=== PATIENT | female | born 1950 | race Caucasian/White ===

== ENCOUNTER 2022-11-09 12:36 | Inpatient (IN) | payer OTHER, MEDICARE ==
[~2022-11-09 12:36] MED LIST: Magnevist 469MG/ML 20 ML VIAL ONE
[2022-11-09 15:10] LABS: #Neutrophils 2.2 thou/uL (1.40-6.50); %Basophils 0.7 % (0.0-1.0); %Eosinophils 0.3 % (0.0-10.0); %Lymphocytes 43.1 % (21.0-51.0); %Monocytes 17.5 % (0.0-10.0); %Neutrophils 37.2 % (42.0-75.0); Hemoglobin 9.3 g/dL (12.0-16.0); Mean Corpuscular HGB CONC 32.1 g/dL (32.0-36.0); Mean Corpuscular Hemoglobin 31.4 pg (27.0-31.0); Mean Platelet Volume 9.7 fL (7.4-10.4); RBC Distribution Width 17.3 % (11.5-14.5); Red Blood Cell (RBC) Count 2.96 mill/uL (4.20-5.40); White Blood Cell (WBC) Count 5.8 10x3/uL (4.8-10.8)
[2022-11-09 15:13] LABS: Platelet Count 80 10x3/uL (130-400)
[2022-11-09 15:32] LABS: ALT (SGPT) 37 U/L (8-55); AST (SGOT) 29 U/L (5-34); Albumin 3.2 g/dL (3.4-4.8); Alkaline Phosphatase 47 U/L (40-110); Anion Gap 7 mmol/L (10-20); BUN (Urea Nitrogen) 19 mg/dL (9.8-20.1); Bilirubin, Total 0.4 mg/dL (0.2-1.2); Calc. Creatinine Clearance 0 mL/min (70-130); Calcium 10.1 mg/dL (7.8-10.44); Carbon Dioxide 27 mmol/L (23-31); Chloride 96 mmol/L (98-107); Estimated GFR 53; Glucose 104 mg/dL (83-110); Potassium 3.4 mmol/L (3.5-5.1); Sodium 127 mmol/L (136-145)
[2022-11-09 16:08] LABS: Protein, Total 14.4 g/dL (5.8-8.1)
[2022-11-09 16:09] LABS: Globulin 11.2 g/dL (2.4-3.5)
[2022-11-09] MEDS ORDERED: Morphine 4 MG/ML VIAL ONE (16:48)
[2022-11-09] MEDS ORDERED: Ondansetron ODT 4 MG TAB PO PRN (17:48)
[2022-11-09] MEDS ORDERED: Morphine 2 MG/ML VIAL SLOW IVP PRN (17:56)
[2022-11-09] MEDS ORDERED: Dexamethasone 40 MG in Sodium Chloride 0.9% 50 ML IVPB SCH ×3 (18:15→18:30)
[2022-11-09] MEDS ORDERED: Potassium Chloride 20 MEQ TAB PO SCH (19:00)
[2022-11-09] MEDS ORDERED: Potassium Chloride 20 MEQ TAB ONE (19:25)
[2022-11-09] MEDS: Sodium Chloride 0.9% 1,000 ML IV SCH (19:44)
[2022-11-09 19:47] LABS: Magnesium 2.4 mg/dL (1.6-2.6); Phosphorus 4.1 mg/dL (2.3-4.7)
[2022-11-09 19:54] VITALS: BMI 19.9
[2022-11-09] MEDS: HYDROcodone/Acetaminophen 7.5/325 mg Tablet PO PRN (19:58)
[2022-11-09] MEDS ORDERED: HYDROcodone/Acetaminophen 7.5/325 mg Tablet ONE (19:58)
[2022-11-09] MEDS ORDERED: Famotidine 20 MG TAB PO SCH (21:00)
[2022-11-09] MEDS: fentaNYL 50 mcg/hour Patch TD SCH (21:45)
[2022-11-09] MEDS ORDERED: Pantoprazole 40 MG VIAL IVP SCH (23:59)
[2022-11-10] MEDS: HYDROcodone/Acetaminophen 7.5/325 mg Tablet PO PRN ×3 (01:39→17:14)
[2022-11-10 07:51] LABS: #Monocytes 0.6 thou/uL (0.11-0.59); #Neutrophils 4.3 thou/uL (1.40-6.50); %Basophils 0.3 % (0.0-1.0); %Eosinophils 0.1 % (0.0-10.0); %Lymphocytes 37.1 % (21.0-51.0); %Monocytes 6.9 % (0.0-10.0); %Neutrophils 54.1 % (42.0-75.0); Hematocrit 25.4 % (36.0-47.0); Hemoglobin 8.1 g/dL (12.0-16.0); Mean Corpuscular HGB CONC 31.9 g/dL (32.0-36.0); Mean Corpuscular Hemoglobin 31.6 pg (27.0-31.0); Mean Corpuscular Volume 99.2 fl (78.0-98.0); Mean Platelet Volume 9.4 fL (7.4-10.4); RBC Distribution Width 17.3 % (11.5-14.5); Red Blood Cell (RBC) Count 2.56 mill/uL (4.20-5.40)
[2022-11-10 07:55] LABS: Platelet Count 73 10x3/uL (130-400)
[2022-11-10 08:16] LABS: INR-International Normal Ratio 1.2; PTT 31.3 sec (22.9-36.1); Prothrombin Time 15.8 sec (12.0-14.7)
[2022-11-10] MEDS: Gabapentin 300 MG CAP PO SCH ×2 (08:44→20:21)
[2022-11-10] MEDS: Pantoprazole 40 MG VIAL IVP SCH (08:44)
[2022-11-10 08:58] LABS: ALT (SGPT) 37 U/L (8-55); AST (SGOT) 29 U/L (5-34); Albumin 2.9 g/dL (3.4-4.8); Alkaline Phosphatase 44 U/L (40-110); Anion Gap 8 mmol/L (10-20); BUN (Urea Nitrogen) 22 mg/dL (9.8-20.1); Bilirubin, Total 0.7 mg/dL (0.2-1.2); Calc. Creatinine Clearance 35 mL/min (70-130); Calcium 10.8 mg/dL (7.8-10.44); Carbon Dioxide 22 mmol/L (23-31); Chloride 102 mmol/L (98-107); Estimated GFR 51; Glucose 148 mg/dL (83-110); Potassium 4.5 mmol/L (3.5-5.1); Sodium 127 mmol/L (136-145)
[2022-11-10 09:55] LABS: Protein, Total 13.6 g/dL (5.8-8.1)
[2022-11-10 09:56] LABS: Globulin 10.7 g/dL (2.4-3.5)
[2022-11-10] MEDS: Sodium Chloride 0.9% 1,000 ML IV SCH ×3 (12:20→20:20)
[2022-11-10] MEDS: Dexamethasone 4 mg/ml Vial SLOW IVP SCH ×3 (12:31→23:48)
[2022-11-10 12:57] LABS: Creatinine, Urine 38.27 mg/dL (47-110)
[2022-11-11] MEDS: Dexamethasone 4 mg/ml Vial SLOW IVP SCH ×4 (05:26→23:20)
[2022-11-11] MEDS: Sodium Chloride 0.9% 1,000 ML IV SCH ×2 (05:30→17:55)
[2022-11-11 07:21] LABS: #Monocytes 1.6 thou/uL (0.11-0.59); %Basophils 0.1 % (0.0-1.0); %Lymphocytes 22.7 % (21.0-51.0); %Monocytes 12.3 % (0.0-10.0); %Neutrophils 63.6 % (42.0-75.0); Hematocrit 24.1 % (36.0-47.0); Hemoglobin 7.6 g/dL (12.0-16.0); Mean Corpuscular HGB CONC 31.5 g/dL (32.0-36.0); Mean Corpuscular Hemoglobin 31.8 pg (27.0-31.0); Mean Corpuscular Volume 100.8 fl (78.0-98.0); Mean Platelet Volume 10.5 fL (7.4-10.4); RBC Distribution Width 16.9 % (11.5-14.5); Red Blood Cell (RBC) Count 2.39 mill/uL (4.20-5.40); White Blood Cell (WBC) Count 12.6 10x3/uL (4.8-10.8)
[2022-11-11 07:28] LABS: Platelet Count 61 10x3/uL (130-400)
[2022-11-11] MEDS: valACYclovir 500 MG TAB PO SCH (08:52)
[2022-11-11] MEDS: Pantoprazole 40 MG VIAL IVP SCH (08:52)
[2022-11-11] MEDS: Gabapentin 300 MG CAP PO SCH ×2 (08:52→20:20)
[2022-11-11] MEDS ORDERED: fentaNYL 50 mcg/mL 1 mL Vial ONE (09:41)
[2022-11-11] MEDS ORDERED: Midazolam HCl 2 mg/2 ml Vial ONE (09:42)
[2022-11-11] MEDS ORDERED: Sodium Bicarbonate 2.5 MEQ/5 ML VIAL ONE (09:42)
[2022-11-11 10:19] LABS: ALT (SGPT) 31 U/L (8-55); AST (SGOT) 22 U/L (5-34); Albumin 2.7 g/dL (3.4-4.8); Alkaline Phosphatase 41 U/L (40-110); Anion Gap 4 mmol/L (10-20); BUN (Urea Nitrogen) 29 mg/dL (9.8-20.1); Calc. Creatinine Clearance 43 mL/min (70-130); Calcium 9.4 mg/dL (7.8-10.44); Carbon Dioxide 26 mmol/L (23-31); Chloride 101 mmol/L (98-107); Estimated GFR 65; Glucose 133 mg/dL (83-110); Potassium 4.2 mmol/L (3.5-5.1); Sodium 127 mmol/L (136-145)
[2022-11-11 10:24] LABS: Globulin 9.1 g/dL (2.4-3.5); Protein, Total 11.8 g/dL (5.8-8.1)
[2022-11-11 10:37] LABS: Bilirubin, Total 0.3 mg/dL (0.2-1.2)
[2022-11-11] MEDS ORDERED: Polyethylene Glycol 3350 17 GM Packet PO PRN (19:49)
[2022-11-11] MEDS: Senokot S 8.6-50 MG TAB PO SCH (20:20)
[2022-11-12] MEDS: Sodium Chloride 0.9% 1,000 ML IV SCH ×3 (03:06→20:24)
[2022-11-12] MEDS: Dexamethasone 4 mg/ml Vial SLOW IVP SCH ×4 (05:04→23:47)
[2022-11-12] MEDS: HYDROcodone/Acetaminophen 7.5/325 mg Tablet PO PRN ×2 (05:09→22:34)
[2022-11-12] MEDS ORDERED: Dexamethasone 40 MG in Sodium Chloride 0.9% 50 ML IVPB SCH (06:00)
[2022-11-12] MEDS ORDERED: ADMIXTURE FEE CHEMO SC SCH (06:00)
[2022-11-12] MEDS ORDERED: SODIUM CHLORIDE 0.9% IVPB SCH ×2 (06:00→10:15)
[2022-11-12] MEDS ORDERED: CYCLOPHOSPHAMIDE IVPB SCH ×2 (06:00→10:15)
[2022-11-12] MEDS ORDERED: BORTEZOMIB SC SCH (06:00)
[2022-11-12 06:14] LABS: #Monocytes 1.3 thou/uL (0.11-0.59); %Basophils 0.1 % (0.0-1.0); %Lymphocytes 18.2 % (21.0-51.0); %Monocytes 12.6 % (0.0-10.0); %Neutrophils 66.3 % (42.0-75.0); Hematocrit 24.3 % (36.0-47.0); Hemoglobin 7.8 g/dL (12.0-16.0); Mean Corpuscular HGB CONC 32.1 g/dL (32.0-36.0); Mean Corpuscular Volume 99.6 fl (78.0-98.0); RBC Distribution Width 16.9 % (11.5-14.5); Red Blood Cell (RBC) Count 2.44 mill/uL (4.20-5.40); White Blood Cell (WBC) Count 10.5 10x3/uL (4.8-10.8)
[2022-11-12 06:15] LABS: Platelet Count 66 10x3/uL (130-400)
[2022-11-12 06:46] LABS: ALT (SGPT) 28 U/L (8-55); AST (SGOT) 15 U/L (5-34); Albumin 2.5 g/dL (3.4-4.8); Alkaline Phosphatase 40 U/L (40-110); Anion Gap 6 mmol/L (10-20); BUN (Urea Nitrogen) 30 mg/dL (9.8-20.1); Bilirubin, Total Less than 0.2 mg/dL (0.2-1.2); Calc. Creatinine Clearance 49 mL/min (70-130); Calcium 8.7 mg/dL (7.8-10.44); Carbon Dioxide 24 mmol/L (23-31); Chloride 101 mmol/L (98-107); Estimated GFR 77; Globulin 8.3 g/dL (2.4-3.5); Glucose 129 mg/dL (83-110); Potassium 3.5 mmol/L (3.5-5.1); Protein, Total 10.8 g/dL (5.8-8.1); Sodium 127 mmol/L (136-145)
[2022-11-12] MEDS: Gabapentin 300 MG CAP PO SCH ×2 (08:54→20:13)
[2022-11-12] MEDS: Ferrous Sulfate 325 MG TAB PO SCH ×2 (08:54→21:34)
[2022-11-12] MEDS: Senokot S 8.6-50 MG TAB PO SCH ×2 (08:55→20:13)
[2022-11-12] MEDS: Pantoprazole 40 MG VIAL IVP SCH (08:55)
[2022-11-12] MEDS: valACYclovir 500 MG TAB PO SCH (08:55)
[2022-11-12 16:38] LABS: IgA - Total IgA (Sendout) 5 mg/dL (64-422); Immunoglobulin - G (Sendout) 6432 mg/dL (586-1602); Immunoglobulin - M (Sendout) 6 mg/dL (26-217)
[2022-11-12] MEDS: fentaNYL 50 mcg/hour Patch TD SCH (20:09)
[2022-11-12] MEDS: Mirtazapine 15 MG Soltab PO SCH ×2 (20:13→20:15)
[2022-11-13] MEDS: Dexamethasone 4 mg/ml Vial SLOW IVP SCH ×4 (05:08→23:45)
[2022-11-13] MEDS: HYDROcodone/Acetaminophen 7.5/325 mg Tablet PO PRN ×2 (05:09→20:10)
[2022-11-13 06:41] LABS: #Monocytes 1.4 thou/uL (0.11-0.59); #Neutrophils 12.2 thou/uL (1.40-6.50); %Basophils 0.1 % (0.0-1.0); %Lymphocytes 8.1 % (21.0-51.0); %Monocytes 9.2 % (0.0-10.0); %Neutrophils 81.1 % (42.0-75.0); Hematocrit 25.2 % (36.0-47.0); Hemoglobin 8.4 g/dL (12.0-16.0); Mean Corpuscular HGB CONC 33.3 g/dL (32.0-36.0); Mean Corpuscular Hemoglobin 32.1 pg (27.0-31.0); Mean Corpuscular Volume 96.2 fl (78.0-98.0); RBC Distribution Width 16.6 % (11.5-14.5); Red Blood Cell (RBC) Count 2.62 mill/uL (4.20-5.40)
[2022-11-13 06:42] LABS: Platelet Count 73 10x3/uL (130-400)
[2022-11-13 07:08] LABS: ALT (SGPT) 27 U/L (8-55); AST (SGOT) 16 U/L (5-34); Albumin 2.4 g/dL (3.4-4.8); Alkaline Phosphatase 42 U/L (40-110); Anion Gap 7 mmol/L (10-20); BUN (Urea Nitrogen) 26 mg/dL (9.8-20.1); Bilirubin, Total 0.4 mg/dL (0.2-1.2); Calc. Creatinine Clearance 58 mL/min (70-130); Calcium 8.6 mg/dL (7.8-10.44); Carbon Dioxide 22 mmol/L (23-31); Chloride 102 mmol/L (98-107); Estimated GFR 92; Globulin 7.7 g/dL (2.4-3.5); Glucose 135 mg/dL (83-110); Potassium 3.2 mmol/L (3.5-5.1); Protein, Total 10.1 g/dL (5.8-8.1); Sodium 128 mmol/L (136-145)
[2022-11-13] MEDS: valACYclovir 500 MG TAB PO SCH (09:07)
[2022-11-13] MEDS: Sodium Chloride 0.9% 1,000 ML IV SCH ×2 (09:07→20:16)
[2022-11-13] MEDS: Senokot S 8.6-50 MG TAB PO SCH ×2 (09:07→20:08)
[2022-11-13] MEDS: Ferrous Sulfate 325 MG TAB PO SCH ×3 (09:07→20:08)
[2022-11-13] MEDS: Gabapentin 300 MG CAP PO SCH ×2 (09:07→20:09)
[2022-11-13] MEDS: Pantoprazole 40 MG VIAL IVP SCH (09:07)
[2022-11-13] MEDS: Mirtazapine 15 MG Soltab PO SCH (20:09)
[2022-11-14] MEDS: Dexamethasone 4 mg/ml Vial SLOW IVP SCH ×3 (05:26→17:02)
[2022-11-14 06:45] LABS: #Monocytes 0.8 thou/uL (0.11-0.59); #Neutrophils 9.7 thou/uL (1.40-6.50); %Basophils 0.2 % (0.0-1.0); %Lymphocytes 7.6 % (21.0-51.0); %Monocytes 6.7 % (0.0-10.0); %Neutrophils 84.5 % (42.0-75.0); Hematocrit 25.2 % (36.0-47.0); Hemoglobin 8.4 g/dL (12.0-16.0); Mean Corpuscular HGB CONC 33.3 g/dL (32.0-36.0); Mean Corpuscular Hemoglobin 32.2 pg (27.0-31.0); Mean Corpuscular Volume 96.6 fl (78.0-98.0); Mean Platelet Volume 11.4 fL (7.4-10.4); RBC Distribution Width 16.8 % (11.5-14.5); Red Blood Cell (RBC) Count 2.61 mill/uL (4.20-5.40); White Blood Cell (WBC) Count 11.5 10x3/uL (4.8-10.8)
[2022-11-14 06:47] LABS: Platelet Count 76 10x3/uL (130-400)
[2022-11-14 07:01] LABS: ALT (SGPT) 25 U/L (8-55); AST (SGOT) 15 U/L (5-34); Albumin 2.4 g/dL (3.4-4.8); Alkaline Phosphatase 40 U/L (40-110); Anion Gap 5 mmol/L (10-20); BUN (Urea Nitrogen) 22 mg/dL (9.8-20.1); Bilirubin, Total 0.2 mg/dL (0.2-1.2); Calc. Creatinine Clearance 64 mL/min (70-130); Calcium 8.2 mg/dL (7.8-10.44); Carbon Dioxide 26 mmol/L (23-31); Chloride 101 mmol/L (98-107); Estimated GFR 95; Globulin 6.5 g/dL (2.4-3.5); Glucose 133 mg/dL (83-110); Potassium 3.1 mmol/L (3.5-5.1); Protein, Total 8.9 g/dL (5.8-8.1); Sodium 129 mmol/L (136-145)
[2022-11-14] MEDS: valACYclovir 500 MG TAB PO SCH (09:07)
[2022-11-14] MEDS: Senokot S 8.6-50 MG TAB PO SCH ×2 (09:08→20:51)
[2022-11-14] MEDS: Pantoprazole 40 MG VIAL IVP SCH (09:08)
[2022-11-14] MEDS: Gabapentin 300 MG CAP PO SCH ×2 (09:08→20:51)
[2022-11-14] MEDS: Ferrous Sulfate 325 MG TAB PO SCH ×2 (09:16→20:51)
[2022-11-14] MEDS: Sodium Chloride 0.9% 1,000 ML IV SCH ×2 (11:20→22:55)
[2022-11-14] MEDS: HYDROcodone/Acetaminophen 7.5/325 mg Tablet PO PRN ×2 (11:20→20:51)
[2022-11-14] MEDS ORDERED: Potassium Chloride 20 MEQ TAB PO SCH (12:30)
[2022-11-14] MEDS: Potassium Chloride 20 MEQ TAB PO SCH (17:02)
[2022-11-14] MEDS: Mirtazapine 15 MG Soltab PO SCH (20:54)
[2022-11-14] MEDS: Bisacodyl 5 MG TAB PO PRN (22:56)
[2022-11-15] MEDS: Dexamethasone 4 mg/ml Vial SLOW IVP SCH ×2 (00:33→05:20)
[2022-11-15 05:27] LABS: #Monocytes 0.8 thou/uL (0.11-0.59); #Neutrophils 9.2 thou/uL (1.40-6.50); %Basophils 0.2 % (0.0-1.0); %Monocytes 7.2 % (0.0-10.0); %Neutrophils 83.7 % (42.0-75.0); Hematocrit 24.7 % (36.0-47.0); Hemoglobin 8.1 g/dL (12.0-16.0); Mean Corpuscular HGB CONC 32.8 g/dL (32.0-36.0); Mean Corpuscular Volume 97.6 fl (78.0-98.0); Mean Platelet Volume 11.1 fL (7.4-10.4); RBC Distribution Width 16.7 % (11.5-14.5); Red Blood Cell (RBC) Count 2.53 mill/uL (4.20-5.40); White Blood Cell (WBC) Count 10.9 10x3/uL (4.8-10.8)
[2022-11-15 05:32] LABS: Platelet Count 80 10x3/uL (130-400)
[2022-11-15 05:53] LABS: Anion Gap 5 mmol/L (10-20); Calcium 8.1 mg/dL (7.8-10.44); Carbon Dioxide 26 mmol/L (23-31); Chloride 100 mmol/L (98-107); Glucose 128 mg/dL (83-110); Sodium 127 mmol/L (136-145)
[2022-11-15 05:55] LABS: Calc. Creatinine Clearance 66 mL/min (70-130); Estimated GFR 95
[2022-11-15 05:56] LABS: BUN (Urea Nitrogen) 18 mg/dL (9.8-20.1)
[2022-11-15] MEDS: Gabapentin 300 MG CAP PO SCH ×2 (08:16→20:45)
[2022-11-15] MEDS: Senokot S 8.6-50 MG TAB PO SCH ×2 (08:16→20:45)
[2022-11-15] MEDS: valACYclovir 500 MG TAB PO SCH (08:16)
[2022-11-15] MEDS: Bisacodyl 5 MG TAB PO PRN (08:16)
[2022-11-15] MEDS: Potassium Chloride 20 MEQ TAB PO SCH ×2 (08:16→16:38)
[2022-11-15] MEDS: Ferrous Sulfate 325 MG TAB PO SCH ×2 (08:17→16:38)
[2022-11-15] MEDS: Pantoprazole 40 MG VIAL IVP SCH (08:17)
[2022-11-15] MEDS: HYDROcodone/Acetaminophen 7.5/325 mg Tablet PO PRN (09:15)
[2022-11-15] MEDS ORDERED: Dexamethasone 4 MG TAB PO SCH (13:45)
[2022-11-15 16:13] LABS: Kappa/Lambda Ratio Note: (1.83-14.26)
[2022-11-15] MEDS: Sodium Chloride 0.9% 1,000 ML IV SCH (16:37)
[2022-11-15] MEDS: Dexamethasone 4 MG TAB PO SCH (16:38)
[2022-11-15 17:37] LABS: M-Spike,% Note: % (Not Observed)
[2022-11-15] MEDS: fentaNYL 50 mcg/hour Patch TD SCH (21:00)
[2022-11-15] MEDS: Mirtazapine 15 MG Soltab PO SCH (21:06)
[2022-11-16 06:53] LABS: #Monocytes 0.7 thou/uL (0.11-0.59); #Neutrophils 5.9 thou/uL (1.40-6.50); %Basophils 0.1 % (0.0-1.0); %Lymphocytes 12.1 % (21.0-51.0); %Monocytes 9.1 % (0.0-10.0); %Neutrophils 76.6 % (42.0-75.0); Hematocrit 26.1 % (36.0-47.0); Hemoglobin 8.4 g/dL (12.0-16.0); Mean Corpuscular HGB CONC 32.2 g/dL (32.0-36.0); Mean Corpuscular Hemoglobin 31.8 pg (27.0-31.0); Mean Corpuscular Volume 98.9 fl (78.0-98.0); Mean Platelet Volume 10.1 fL (7.4-10.4); Platelet Count 99 10x3/uL (130-400); RBC Distribution Width 16.7 % (11.5-14.5); Red Blood Cell (RBC) Count 2.64 mill/uL (4.20-5.40); White Blood Cell (WBC) Count 7.7 10x3/uL (4.8-10.8)
[2022-11-16 07:32] LABS: ALT (SGPT) 21 U/L (8-55); AST (SGOT) 12 U/L (5-34); Albumin 2.4 g/dL (3.4-4.8); Alkaline Phosphatase 47 U/L (40-110); Anion Gap 9 mmol/L (10-20); BUN (Urea Nitrogen) 17 mg/dL (9.8-20.1); Bilirubin, Total 0.3 mg/dL (0.2-1.2); Calc. Creatinine Clearance 68 mL/min (70-130); Calcium 7.9 mg/dL (7.8-10.44); Carbon Dioxide 22 mmol/L (23-31); Chloride 101 mmol/L (98-107); Estimated GFR 96; Globulin 5.4 g/dL (2.4-3.5); Glucose 83 mg/dL (83-110); Protein, Total 7.8 g/dL (5.8-8.1); Sodium 128 mmol/L (136-145)
[2022-11-16] MEDS: Senokot S 8.6-50 MG TAB PO SCH ×2 (09:06→21:06)
[2022-11-16] MEDS: Potassium Chloride 20 MEQ TAB PO SCH ×2 (09:06→17:10)
[2022-11-16] MEDS: Gabapentin 300 MG CAP PO SCH ×2 (09:06→21:06)
[2022-11-16] MEDS: Ferrous Sulfate 325 MG TAB PO SCH ×2 (09:07→17:10)
[2022-11-16] MEDS: Polyethylene Glycol 3350 17 GM Packet PER TUBE SCH (09:07)
[2022-11-16] MEDS: valACYclovir 500 MG TAB PO SCH (09:07)
[2022-11-16] MEDS: Dexamethasone 4 MG TAB PO SCH ×3 (09:07→17:10)
[2022-11-16] MEDS: HYDROcodone/Acetaminophen 7.5/325 mg Tablet PO PRN ×2 (09:09→21:09)
[2022-11-16 14:37] LABS: Kappa Lambda Light Chain Ratio 12.88 (0.26-1.65); Kappa Light Chains 21.9 mg/L (3.3-19.4); Lambda Light Chain 1.7 mg/L (5.7-26.3)
[2022-11-16 16:13] LABS: IgA - Total IgA (Sendout) 6 mg/dL (64-422); Immunoglobulin - G (Sendout) 4755 mg/dL (586-1602); Immunoglobulin - M (Sendout) 6 mg/dL (26-217)
[2022-11-16 19:17] LABS: Bacteria/HPF 3+ HPF (None Seen); Bilirubin Negative (Negative); Blood, Urine 2+ (Negative); CAUTI Indications for Culture Dysuria,urgency,freq; Clarity Turbid (Clear); Glucose, Urine (Dipstick) Normal (Negative); Ketone, Urine Negative (Negative); Leukocyte 500 Leu/uL (Negative); Nitrite Negative (Negative); Protein, Urine (Dipstick) Negative (Neg-Trace); Specific Gravity, Urine 1.008 (1.002-1.036); Squamous Epithelial 0-3 HPF (0-3); Urobilinogen Normal mg/dL (Less than 2); WBC/HPF 21-50 HPF (0-3)
[2022-11-16 19:20] LABS: Urine Culture Reflex Yes Yes
[2022-11-16] MEDS ORDERED: LevoFLOXacin 500 MG TAB PO SCH (20:30)
[2022-11-16] MEDS: Mirtazapine 15 MG Soltab PO SCH (20:48)
[2022-11-17] MEDS: LevoFLOXacin 500 MG TAB PO SCH (05:39)
[2022-11-17] MEDS: Bisacodyl 5 MG TAB PO PRN (06:00)
[2022-11-17 07:23] LABS: #Monocytes 0.5 thou/uL (0.11-0.59); #Neutrophils 4.5 thou/uL (1.40-6.50); %Basophils 0.3 % (0.0-1.0); %Lymphocytes 14.4 % (21.0-51.0); %Monocytes 8.2 % (0.0-10.0); %Neutrophils 75.6 % (42.0-75.0); Hematocrit 28.1 % (36.0-47.0); Hemoglobin 9.2 g/dL (12.0-16.0); Mean Corpuscular HGB CONC 32.7 g/dL (32.0-36.0); Mean Corpuscular Hemoglobin 32.1 pg (27.0-31.0); Mean Corpuscular Volume 97.9 fl (78.0-98.0); Mean Platelet Volume 10.3 fL (7.4-10.4); Platelet Count 125 10x3/uL (130-400); RBC Distribution Width 16.6 % (11.5-14.5); Red Blood Cell (RBC) Count 2.87 mill/uL (4.20-5.40)
[2022-11-17 07:52] LABS: ALT (SGPT) 22 U/L (8-55); AST (SGOT) 13 U/L (5-34); Albumin 2.8 g/dL (3.4-4.8); Alkaline Phosphatase 54 U/L (40-110); Anion Gap 8 mmol/L (10-20); BUN (Urea Nitrogen) 18 mg/dL (9.8-20.1); Bilirubin, Total 0.4 mg/dL (0.2-1.2); Calc. Creatinine Clearance 62 mL/min (70-130); Calcium 8.6 mg/dL (7.8-10.44); Carbon Dioxide 26 mmol/L (23-31); Chloride 99 mmol/L (98-107); Estimated GFR 94; Globulin 5.8 g/dL (2.4-3.5); Glucose 105 mg/dL (83-110); Potassium 3.5 mmol/L (3.5-5.1); Protein, Total 8.6 g/dL (5.8-8.1); Sodium 129 mmol/L (136-145)
[2022-11-17] MEDS: Dexamethasone 4 MG TAB PO SCH ×3 (08:50→18:19)
[2022-11-17] MEDS: Potassium Chloride 20 MEQ TAB PO SCH ×2 (08:51→18:19)
[2022-11-17] MEDS: valACYclovir 500 MG TAB PO SCH (08:51)
[2022-11-17] MEDS: Senokot S 8.6-50 MG TAB PO SCH ×2 (08:51→20:16)
[2022-11-17] MEDS: Gabapentin 300 MG CAP PO SCH ×2 (08:51→20:16)
[2022-11-17] MEDS: Ferrous Sulfate 325 MG TAB PO SCH ×2 (08:51→18:19)
[2022-11-17] MEDS: Polyethylene Glycol 3350 17 GM Packet PER TUBE SCH (10:31)
[2022-11-17 16:14] LABS: Alb/Glob Ratio 0.6 (0.7-1.7); Albumin 2.8 g/dL (2.9-4.4); Alpha-1-Globulin 0.3 g/dL (0.0-0.4); Alpha-2-Globulin 0.9 g/dL (0.4-1.0); Beta-Globulin 0.7 g/dL (0.7-1.3); Gamma-Globulin 3.6 g/dL (0.4-1.8); Globulin, Total 5.5 g/dL (2.2-3.9); IgA - Total IgA (Sendout) 6 mg/dL (64-422); Immunoglobulin - G (Sendout) 4820 mg/dL (586-1602); Immunoglobulin - M (Sendout) 7 mg/dL (26-217); M-Spike 3.1 g/dL (Not Observed)
[2022-11-17] MEDS: Mirtazapine 15 MG Soltab PO SCH (20:16)
[2022-11-18] MEDS: LevoFLOXacin 500 MG TAB PO SCH (05:47)
[2022-11-18 07:05] LABS: #Monocytes 0.5 thou/uL (0.11-0.59); #Neutrophils 4.1 thou/uL (1.40-6.50); %Basophils 0.4 % (0.0-1.0); %Lymphocytes 15.5 % (21.0-51.0); %Monocytes 9.6 % (0.0-10.0); %Neutrophils 73.1 % (42.0-75.0); Hemoglobin 8.8 g/dL (12.0-16.0); Mean Corpuscular HGB CONC 32.6 g/dL (32.0-36.0); Mean Corpuscular Hemoglobin 31.7 pg (27.0-31.0); Mean Corpuscular Volume 97.1 fl (78.0-98.0); Platelet Count 131 10x3/uL (130-400); RBC Distribution Width 16.7 % (11.5-14.5); Red Blood Cell (RBC) Count 2.78 mill/uL (4.20-5.40); White Blood Cell (WBC) Count 5.6 10x3/uL (4.8-10.8)
[2022-11-18 07:34] LABS: ALT (SGPT) 19 U/L (8-55); AST (SGOT) 13 U/L (5-34); Albumin 2.8 g/dL (3.4-4.8); Alkaline Phosphatase 58 U/L (40-110); Anion Gap 8 mmol/L (10-20); BUN (Urea Nitrogen) 18 mg/dL (9.8-20.1); Bilirubin, Total 0.4 mg/dL (0.2-1.2); Calc. Creatinine Clearance 65 mL/min (70-130); Calcium 8.6 mg/dL (7.8-10.44); Carbon Dioxide 27 mmol/L (23-31); Chloride 98 mmol/L (98-107); Estimated GFR 95; Globulin 5.3 g/dL (2.4-3.5); Glucose 105 mg/dL (83-110); Potassium 4.8 mmol/L (3.5-5.1); Protein, Total 8.1 g/dL (5.8-8.1); Sodium 128 mmol/L (136-145)
[2022-11-18] MEDS: valACYclovir 500 MG TAB PO SCH (09:08)
[2022-11-18] MEDS: Gabapentin 300 MG CAP PO SCH ×2 (09:09→19:51)
[2022-11-18] MEDS: Potassium Chloride 20 MEQ TAB PO SCH ×2 (09:10→17:39)
[2022-11-18] MEDS: Senokot S 8.6-50 MG TAB PO SCH ×2 (09:10→19:52)
[2022-11-18] MEDS: Ferrous Sulfate 325 MG TAB PO SCH ×2 (09:10→17:39)
[2022-11-18] MEDS: Dexamethasone 4 MG TAB PO SCH ×3 (09:11→17:39)
[2022-11-18] MEDS: Polyethylene Glycol 3350 17 GM Packet PER TUBE SCH (09:11)
[2022-11-18] MEDS ORDERED: Methylnaltrexone 12 MG/0.6 ML VIAL SC SCH (14:00)
[2022-11-18] MEDS: Mirtazapine 15 MG Soltab PO SCH (19:52)
[2022-11-19] MEDS: LevoFLOXacin 500 MG TAB PO SCH (05:26)
[2022-11-19] MEDS ORDERED: Dexamethasone Sod Phosphate 40 MG in Sodium Chloride 0.9% 50 ML IVPB SCH (06:45)
[2022-11-19] MEDS ORDERED: BORTEZOMIB SC SCH (07:00)
[2022-11-19] MEDS ORDERED: SODIUM CHLORIDE 0.9% IVPB SCH ×2 (07:00→09:00)
[2022-11-19] MEDS ORDERED: SODIUM CHLORIDE 0.9% SC SCH (07:00)
[2022-11-19] MEDS ORDERED: CYCLOPHOSPHAMIDE IVPB SCH ×2 (07:00→09:00)
[2022-11-19] MEDS: Gabapentin 300 MG CAP PO SCH ×2 (09:12→20:03)
[2022-11-19] MEDS: Potassium Chloride 20 MEQ TAB PO SCH ×2 (09:12→16:17)
[2022-11-19] MEDS: Dexamethasone 4 MG TAB PO SCH ×3 (09:13→16:17)
[2022-11-19] MEDS: valACYclovir 500 MG TAB PO SCH (09:13)
[2022-11-19] MEDS: Senokot S 8.6-50 MG TAB PO SCH ×2 (09:13→20:03)
[2022-11-19] MEDS: Ferrous Sulfate 325 MG TAB PO SCH ×2 (09:13→16:17)
[2022-11-19] MEDS: Polyethylene Glycol 3350 17 GM Packet PER TUBE SCH (11:31)
[2022-11-19] MEDS: Bisacodyl 10 MG SUPP PR SCH ×2 (13:42→20:03)
[2022-11-19] MEDS: Mirtazapine 15 MG Soltab PO SCH (20:03)
[2022-11-20] MEDS: Bisacodyl 10 MG SUPP PR SCH ×4 (05:27→23:32)
[2022-11-20] MEDS: LevoFLOXacin 500 MG TAB PO SCH (05:27)
[2022-11-20 05:33] LABS: Hematocrit 28.4 % (36.0-47.0); Hemoglobin 9.5 g/dL (12.0-16.0); Mean Corpuscular HGB CONC 33.5 g/dL (32.0-36.0); Mean Corpuscular Hemoglobin 32.2 pg (27.0-31.0); Mean Corpuscular Volume 96.3 fl (78.0-98.0); Mean Platelet Volume 9.7 fL (7.4-10.4); Platelet Count 174 10x3/uL (130-400); RBC Distribution Width 17.1 % (11.5-14.5); Red Blood Cell (RBC) Count 2.95 mill/uL (4.20-5.40); White Blood Cell (WBC) Count 7.3 10x3/uL (4.8-10.8)
[2022-11-20 06:08] LABS: Anion Gap 9 mmol/L (10-20); BUN (Urea Nitrogen) 19 mg/dL (9.8-20.1); Calc. Creatinine Clearance 64 mL/min (70-130); Calcium 8.5 mg/dL (7.8-10.44); Carbon Dioxide 22 mmol/L (23-31); Chloride 102 mmol/L (98-107); Estimated GFR 95; Glucose 85 mg/dL (83-110); Potassium 3.4 mmol/L (3.5-5.1); Sodium 130 mmol/L (136-145)
[2022-11-20] MEDS: HYDROcodone/Acetaminophen 7.5/325 mg Tablet PO PRN ×2 (09:09→20:14)
[2022-11-20] MEDS: Polyethylene Glycol 3350 17 GM Packet PER TUBE SCH (09:10)
[2022-11-20] MEDS: Senokot S 8.6-50 MG TAB PO SCH ×2 (09:12→20:13)
[2022-11-20] MEDS: Gabapentin 300 MG CAP PO SCH ×2 (09:12→20:13)
[2022-11-20] MEDS: Dexamethasone 4 MG TAB PO SCH ×2 (09:12→18:06)
[2022-11-20] MEDS: valACYclovir 500 MG TAB PO SCH (09:12)
[2022-11-20] MEDS: Potassium Chloride 20 MEQ TAB PO SCH ×2 (09:12→18:05)
[2022-11-20] MEDS: Ferrous Sulfate 325 MG TAB PO SCH ×2 (09:12→18:06)
[2022-11-20] MEDS ORDERED: Vancomycin 1 GM in Premix Bag 1 BAG IVPB SCH ×2 (20:00→21:00)
[2022-11-20] MEDS: Mirtazapine 15 MG Soltab PO SCH (20:13)
[2022-11-20] MEDS ORDERED: Vancomycin HCl 750 MG in Sodium Chloride 0.9% 250 ML 250 ML IVPB SCH (21:00)
[2022-11-21] MEDS: LevoFLOXacin 500 MG TAB PO SCH (05:42)
[2022-11-21 06:44] LABS: Hematocrit 30.3 % (36.0-47.0); Mean Corpuscular Hemoglobin 31.7 pg (27.0-31.0); Mean Corpuscular Volume 96.2 fl (78.0-98.0); Mean Platelet Volume 10.2 fL (7.4-10.4); Platelet Count 162 10x3/uL (130-400); RBC Distribution Width 17.5 % (11.5-14.5); Red Blood Cell (RBC) Count 3.15 mill/uL (4.20-5.40); White Blood Cell (WBC) Count 5.9 10x3/uL (4.8-10.8)
[2022-11-21 07:12] LABS: Anion Gap 7 mmol/L (10-20); BUN (Urea Nitrogen) 19 mg/dL (9.8-20.1); Calc. Creatinine Clearance 58 mL/min (70-130); Calcium 8.8 mg/dL (7.8-10.44); Carbon Dioxide 26 mmol/L (23-31); Chloride 101 mmol/L (98-107); Estimated GFR 92; Glucose 85 mg/dL (83-110); Potassium 4.3 mmol/L (3.5-5.1); Sodium 130 mmol/L (136-145)
[2022-11-21] MEDS ORDERED: Vancomycin HCl 750 MG in Sodium Chloride 0.9% 250 ML 250 ML IVPB SCH (09:00)
[2022-11-21] MEDS: HYDROcodone/Acetaminophen 7.5/325 mg Tablet PO PRN ×2 (09:15→16:07)
[2022-11-21] MEDS: Ferrous Sulfate 325 MG TAB PO SCH ×2 (09:15→16:07)
[2022-11-21] MEDS: valACYclovir 500 MG TAB PO SCH (09:15)
[2022-11-21] MEDS: Gabapentin 300 MG CAP PO SCH ×2 (09:16→21:02)
[2022-11-21] MEDS: Potassium Chloride 20 MEQ TAB PO SCH ×2 (09:16→16:08)
[2022-11-21] MEDS: Dexamethasone 4 MG TAB PO SCH ×2 (09:17→16:07)
[2022-11-21] MEDS: Polyethylene Glycol 3350 17 GM Packet PER TUBE SCH (09:17)
[2022-11-21] MEDS: Senokot S 8.6-50 MG TAB PO SCH ×2 (09:22→21:03)
[2022-11-21] MEDS: Bisacodyl 10 MG SUPP PR SCH ×2 (14:36→21:02)
[2022-11-21] MEDS: Bisacodyl 5 MG TAB PO PRN (14:37)
[2022-11-21 14:52] LABS: Reference Lab Name NEO
[2022-11-21] MEDS ORDERED: Methylnaltrexone 12 MG/0.6 ML VIAL SC SCH (17:45)
[2022-11-21] MEDS: Mirtazapine 15 MG Soltab PO SCH (21:02)
[2022-11-21] MEDS ORDERED: Mineral Oil ENEMA PR SCH (22:30)
[2022-11-22] MEDS ORDERED: Simethicone Chewable 80 MG TAB PO PRN (04:43)
[2022-11-22] MEDS ORDERED: Ketorolac Tromethamine 30 MG/ML VIAL IVP SCH (05:00)
[2022-11-22] MEDS: LevoFLOXacin 250 MG TAB PO SCH (05:32)
[2022-11-22] MEDS: Bisacodyl 10 MG SUPP PR SCH ×4 (05:34→21:30)
[2022-11-22 05:57] LABS: Hematocrit 29.6 % (36.0-47.0); Hemoglobin 9.7 g/dL (12.0-16.0); Mean Corpuscular HGB CONC 32.8 g/dL (32.0-36.0); Mean Corpuscular Hemoglobin 31.7 pg (27.0-31.0); Mean Corpuscular Volume 96.7 fl (78.0-98.0); Mean Platelet Volume 9.9 fL (7.4-10.4); Platelet Count 161 10x3/uL (130-400); RBC Distribution Width 17.6 % (11.5-14.5); Red Blood Cell (RBC) Count 3.06 mill/uL (4.20-5.40); White Blood Cell (WBC) Count 4.2 10x3/uL (4.8-10.8)
[2022-11-22 06:24] LABS: Anion Gap 7 mmol/L (10-20); BUN (Urea Nitrogen) 23 mg/dL (9.8-20.1); Calc. Creatinine Clearance 61 mL/min (70-130); Calcium 8.3 mg/dL (7.8-10.44); Carbon Dioxide 24 mmol/L (23-31); Chloride 101 mmol/L (98-107); Estimated GFR 93; Glucose 84 mg/dL (83-110); Potassium 3.3 mmol/L (3.5-5.1); Sodium 129 mmol/L (136-145)
[2022-11-22] MEDS: Polyethylene Glycol 3350 17 GM Packet PER TUBE SCH (08:46)
[2022-11-22] MEDS: Potassium Chloride 20 MEQ TAB PO SCH ×2 (08:46→16:18)
[2022-11-22] MEDS: Senokot S 8.6-50 MG TAB PO SCH ×2 (08:47→20:51)
[2022-11-22] MEDS: Ferrous Sulfate 325 MG TAB PO SCH ×2 (08:47→16:18)
[2022-11-22] MEDS: valACYclovir 500 MG TAB PO SCH (08:47)
[2022-11-22] MEDS: Gabapentin 300 MG CAP PO SCH ×2 (08:47→20:51)
[2022-11-22] MEDS: Dexamethasone 4 MG TAB PO SCH (08:47)
[2022-11-22] MEDS: Lidocaine 2% Viscous 100 ML BOTTLE SSW SCH ×2 (11:49→16:18)
[2022-11-22] MEDS: Nystatin 500,000 UNITS/5 ML UDCUP SSW SCH ×3 (12:11→21:30)
[2022-11-22] MEDS ORDERED: Nystatin 100,000 Units/mL UDCUP SSW SCH (13:00)
[2022-11-22] MEDS ORDERED: Iopamidol 370 76% 100 ML VIAL ONE (14:06)
[2022-11-22] MEDS: Mirtazapine 15 MG Soltab PO SCH (20:51)
[2022-11-22] MEDS: HYDROcodone/Acetaminophen 7.5/325 mg Tablet PO PRN (23:27)
[2022-11-23] MEDS: Bisacodyl 10 MG SUPP PR SCH ×2 (03:02→10:39)
[2022-11-23] MEDS: LevoFLOXacin 250 MG TAB PO SCH (05:11)
[2022-11-23 07:43] LABS: Anion Gap 7 mmol/L (10-20); BUN (Urea Nitrogen) 24 mg/dL (9.8-20.1); Calc. Creatinine Clearance 64 mL/min (70-130); Calcium 8.4 mg/dL (7.8-10.44); Carbon Dioxide 27 mmol/L (23-31); Chloride 101 mmol/L (98-107); Estimated GFR 95; Glucose 82 mg/dL (83-110); Potassium 4.7 mmol/L (3.5-5.1); Sodium 130 mmol/L (136-145)
[2022-11-23] MEDS ORDERED: Dexamethasone 4 MG TAB PO SCH (08:00)
[2022-11-23 08:02] VITALS: BP 114/76; TEMP 97.7
[2022-11-23] MEDS: HYDROcodone/Acetaminophen 7.5/325 mg Tablet PO PRN (10:37)
[2022-11-23] MEDS: Gabapentin 300 MG CAP PO SCH (10:38)
[2022-11-23] MEDS: valACYclovir 500 MG TAB PO SCH (10:38)
[2022-11-23] MEDS: Polyethylene Glycol 3350 17 GM Packet PER TUBE SCH (10:39)
[2022-11-23] MEDS: Nystatin 500,000 UNITS/5 ML UDCUP SSW SCH ×3 (10:39→17:15)
[2022-11-23] MEDS: Senokot S 8.6-50 MG TAB PO SCH (10:39)
[2022-11-23] MEDS: Bisacodyl 5 MG TAB PO PRN (10:39)
[2022-11-23] MEDS: Lidocaine 2% Viscous 100 ML BOTTLE SSW SCH ×3 (10:40→17:16)
[2022-11-23] MEDS: Ferrous Sulfate 325 MG TAB PO SCH ×2 (10:43→17:15)
[2022-11-23] MEDS: Potassium Chloride 20 MEQ TAB PO SCH ×2 (10:43→17:15)
[2022-11-23] MEDS ORDERED: GoLYTELY 4,000 ml Bottle PO SCH (14:30)
[2022-11-23] MEDS ORDERED: MD-Gastroview 120 ML BOT ONE (14:54)
[2022-11-23] MEDS ORDERED: Naloxegol 12.5 MG TAB PO SCH (15:00)
[2022-11-24] MEDS ORDERED: Naloxegol 12.5 MG TAB PO SCH (07:30)
== END 2022-11-23 18:53 | disposition home or self-care (01) | DRG 841 ==
LOC: ERS 12:36 → ERHOLD 17:54 → T4-B 11-10 01:08 → T4-A 11-15 16:01 → T4-B 11-15 16:02
PROVIDERS: ADMIT Internal Medicine; ATTEND Internal Medicine
PROC: 07DR3ZX Extraction of Iliac Bone Marrow, Percutaneous Approach, Diagnostic (ICD-10-PCS; principal; 2022-11-11)
PROC: 3E03305 Introduction of Other Antineoplastic into Peripheral Vein, Percutaneous Approach (ICD-10-PCS; 2022-11-12)
DX: C90.00 Multiple myeloma not having achieved remission (principal); C79.51 Secondary malignant neoplasm of bone; E87.1 Hypo-osmolality and hyponatremia; N17.9 Acute kidney failure, unspecified; G95.20 Unspecified cord compression; N39.0 Urinary tract infection, site not specified; M84.58XA Pathological fracture in neoplastic disease, other specified site, initial encounter for fracture; Z51.5 Encounter for palliative care; D64.9 Anemia, unspecified; E87.6 Hypokalemia; D69.6 Thrombocytopenia, unspecified; K59.03 Drug induced constipation; T40.2X5A Adverse effect of other opioids, initial encounter; D89.2 Hypergammaglobulinemia, unspecified; N18.2 Chronic kidney disease, stage 2 (mild); D63.1 Anemia in chronic kidney disease; E88.09 Other disorders of plasma-protein metabolism, not elsewhere classified; Z98.890 Other specified postprocedural states
CPT/HCPCS: 36415; 38222; 72128; 72131; 72157; 72158; 74018; 74177; 74270; 77012; 77014; 77290; 77307; 77334; 77412; 77417; 80048; 80053; 81001; 82570; 83615; 83735; 83883; 83930; 83935; 84100; 84155; 84156; 84165; 84166; 84300; 85025; 85027; 85097; 85610; 85730; 86334; 86335; 87086; 88184; 88185; 88189; 88237; 88264; 88280; 88305; 88311; 88313; 88341; 88342; 88365; 96365; 96366; 96372; A9579; C9113; J1100; J1885; J2212; J2250; J2270; J2272; J3010; J3370; J3370-JW; J3490; J7050; J8540; J9041; J9070; Q9963; Q9967

== ENCOUNTER 2022-12-28 14:55 | Outpatient (CLI) | payer OTHER, MEDICAID | END 2022-12-28 14:56 | disposition home or self-care (01) | LOC: CT 14:55 | PROVIDERS: ATTEND Internal Medicine Hematology & Oncology | DX: C90.00 Multiple myeloma not having achieved remission (principal); M48.54XA Collapsed vertebra, not elsewhere classified, thoracic region, initial encounter for fracture | CPT/HCPCS: 80053; 82248; 83615; 84100; 84550; 76497 ==

== ENCOUNTER 2023-01-20 20:13 | Inpatient (IN) | payer MEDICARE, OTHER ==
[~2023-01-20 20:13] MED LIST changes: +Iopamidol-370 76% 500 ML MDV (1 ML CHARGE) ONE; -Magnevist 469MG/ML 20 ML VIAL ONE
[2023-01-20 21:30] LABS: Hematocrit 30.8 % (36.0-47.0); Hemoglobin 10.1 g/dL (12.0-16.0); Manual Diff?? YES; Mean Corpuscular HGB CONC 32.8 g/dL (32.0-36.0); Mean Corpuscular Hemoglobin 32.4 pg (27.0-31.0); Mean Corpuscular Volume 98.7 fl (78.0-98.0); Mean Platelet Volume 11.1 fL (7.4-10.4); Platelet Count 209 10x3/uL (130-400); RBC Distribution Width 17.6 % (11.5-14.5); Red Blood Cell (RBC) Count 3.12 mill/uL (4.20-5.40); White Blood Cell (WBC) Count 7.6 10x3/uL (4.8-10.8)
[2023-01-20 21:38] LABS: Delete Auto Diff?? YES
[2023-01-20 22:03] LABS: ALT (SGPT) 25 U/L (8-55); AST (SGOT) 23 U/L (5-34); Albumin 3.6 g/dL (3.4-4.8); Alkaline Phosphatase 75 U/L (40-110); Anion Gap 14 mmol/L (10-20); BUN (Urea Nitrogen) 13 mg/dL (9.8-20.1); Bilirubin, Total 0.8 mg/dL (0.2-1.2); Calc. Creatinine Clearance 0 mL/min (70-130); Calcium 8.1 mg/dL (7.8-10.44); Carbon Dioxide 22 mmol/L (23-31); Chloride 99 mmol/L (98-107); Estimated GFR 93; Globulin 2.4 g/dL (2.4-3.5); Glucose 111 mg/dL (83-110); Potassium 4.4 mmol/L (3.5-5.1); Sodium 131 mmol/L (136-145)
[2023-01-20 22:12] LABS: Band 32 % (5-11); CellaVision Operator ID LAB.CLH1; Eosinophils 1 % (0-10); Hypochromia SLIGHT = 6-15 cells HPF (0-5); Lymphocytes 9 % (21-51); Metamyelocyte 1 % (0-0); Monocytes 7 % (0-10); Neutrophil 50 % (42-75); Platelet Adequacy Comment Platelets Normal; Polychromasia SLIGHT = 2-3 cells HPF (0-2); Total Cell Count 100
[2023-01-20 22:13] LABS: Magnesium 2.2 mg/dL (1.6-2.6)
[2023-01-20] MEDS ORDERED: Sodium Chloride 0.9% 100 ML ONE (22:26)
[2023-01-20] MEDS ORDERED: cefTRIAXone (ROCEPHIN) 1 GM VIAL ONE (22:26)
[2023-01-20] MEDS ORDERED: Azithromycin 500 MG VIAL ONE (22:26)
[2023-01-20] MEDS ORDERED: Senokot S 8.6-50 MG TAB PO PRN (23:56)
[2023-01-20] MEDS ORDERED: Acetaminophen 325 MG TAB PO PRN (23:56)
[2023-01-20] MEDS ORDERED: Ondansetron ODT 4 MG TAB PO PRN (23:56)
[2023-01-20] MEDS ORDERED: Calcium Carbonate 500 MG ChewTAB PO PRN (23:56)
[2023-01-20] MEDS ORDERED: Ipratropium/Albuterol 3 ML NEB NEB PRN (23:58)
[2023-01-20] MEDS ORDERED: Guaifenesin DM 100-10/5 ML UDCUP PO PRN (23:59)
[2023-01-21 01:58] VITALS: BMI 17.7
[2023-01-21 02:32] LABS: SARS-CoV-2 NAA Rapid Test Not Detected (NotDetected)
[2023-01-21 05:54] LABS: Hematocrit 28.6 % (36.0-47.0); Hemoglobin 9.2 g/dL (12.0-16.0); Manual Diff?? YES; Mean Corpuscular HGB CONC 32.2 g/dL (32.0-36.0); Mean Corpuscular Hemoglobin 32.2 pg (27.0-31.0); Mean Platelet Volume 10.6 fL (7.4-10.4); Platelet Count 199 10x3/uL (130-400); RBC Distribution Width 17.3 % (11.5-14.5); Red Blood Cell (RBC) Count 2.86 mill/uL (4.20-5.40); White Blood Cell (WBC) Count 6.9 10x3/uL (4.8-10.8)
[2023-01-21 06:12] LABS: Delete Auto Diff?? YES
[2023-01-21 06:24] LABS: Anion Gap 11 mmol/L (10-20); BUN (Urea Nitrogen) 9 mg/dL (9.8-20.1); Calc. Creatinine Clearance 64 mL/min (70-130); Calcium 7.6 mg/dL (7.8-10.44); Carbon Dioxide 22 mmol/L (23-31); Chloride 106 mmol/L (98-107); Estimated GFR 97; Glucose 87 mg/dL (83-110); Potassium 3.1 mmol/L (3.5-5.1); Sodium 136 mmol/L (136-145)
[2023-01-21 06:32] LABS: Band 32 % (5-11); CellaVision Operator ID LAB.CLH1; Eosinophils 2 % (0-10); Hypochromia SLIGHT = 6-15 cells HPF (0-5); Large Platelets 2.9 % (0-5); Lymphocytes 10 % (21-51); Macrocytosis SLIGHT = 6-15 cells HPF (0-5); Monocytes 5 % (0-10); Neutrophil 50 % (42-75); Platelet Adequacy Comment Platelets Normal; Polychromasia MODERATE = 3-4 cells HPF (0-2); Total Cell Count 102
[2023-01-21] MEDS: cefTRIAXone\\ROCEPHIN 1 GM in Sodium Chloride 0.9% 100 ML IVPB SCH (08:29)
[2023-01-21] MEDS: valACYclovir 500 MG TAB PO SCH (08:30)
[2023-01-21] MEDS: Ferrous Sulfate 325 MG TAB PO SCH ×2 (08:30→20:37)
[2023-01-21] MEDS: Famotidine 20 MG TAB PO SCH ×2 (08:30→20:37)
[2023-01-21] MEDS: Doxycycline 100 MG CAP PO SCH ×2 (08:30→20:37)
[2023-01-21] MEDS: Polyethylene Glycol 3350 17 GM Packet PO SCH (08:30)
[2023-01-21] MEDS: Gabapentin 300 MG CAP PO SCH ×2 (08:30→20:37)
[2023-01-21] MEDS ORDERED: Potassium Chloride 20 MEQ TAB PO SCH (11:30)
[2023-01-21] MEDS: traMADol HCl 50 MG TAB PO PRN (20:38)
[2023-01-22 07:27] LABS: #Basophils 0.1 thou/uL (0.0-0.2); #Eosinphils 0.2 thou/uL (0.0-0.7); #Monocytes 0.4 thou/uL (0.11-0.59); #Neutrophils 3.5 thou/uL (1.40-6.50); %Basophils 1.4 % (0.0-1.0); %Eosinophils 4.1 % (0.0-10.0); %Lymphocytes 14.2 % (21.0-51.0); %Monocytes 8.9 % (0.0-10.0); %Neutrophils 71.2 % (42.0-75.0); Hemoglobin 9.6 g/dL (12.0-16.0); Mean Corpuscular Hemoglobin 31.4 pg (27.0-31.0); Mean Corpuscular Volume 101.3 fl (78.0-98.0); Mean Platelet Volume 11.2 fL (7.4-10.4); Platelet Count 259 10x3/uL (130-400); RBC Distribution Width 17.3 % (11.5-14.5); Red Blood Cell (RBC) Count 3.06 mill/uL (4.20-5.40); White Blood Cell (WBC) Count 4.9 10x3/uL (4.8-10.8)
[2023-01-22 07:50] LABS: Anion Gap 8 mmol/L (10-20); BUN (Urea Nitrogen) 5 mg/dL (9.8-20.1); Calc. Creatinine Clearance 72 mL/min (70-130); Calcium 7.3 mg/dL (7.8-10.44); Carbon Dioxide 23 mmol/L (23-31); Chloride 106 mmol/L (98-107); Estimated GFR 100; Glucose 87 mg/dL (83-110); Potassium 3.2 mmol/L (3.5-5.1); Sodium 134 mmol/L (136-145)
[2023-01-22] MEDS: cefTRIAXone\\ROCEPHIN 1 GM in Sodium Chloride 0.9% 100 ML IVPB SCH (07:51)
[2023-01-22] MEDS: Gabapentin 300 MG CAP PO SCH ×2 (07:52→21:11)
[2023-01-22] MEDS: Doxycycline 100 MG CAP PO SCH ×2 (07:52→21:11)
[2023-01-22] MEDS: Famotidine 20 MG TAB PO SCH ×2 (07:52→21:11)
[2023-01-22] MEDS: valACYclovir 500 MG TAB PO SCH (07:52)
[2023-01-22] MEDS: Ferrous Sulfate 325 MG TAB PO SCH ×2 (07:52→21:11)
[2023-01-22] MEDS: Polyethylene Glycol 3350 17 GM Packet PO SCH (07:53)
[2023-01-22] MEDS ORDERED: Temazepam 15 MG CAP PO PRN (17:55)
[2023-01-22] MEDS: traMADol HCl 50 MG TAB PO PRN (21:12)
[2023-01-23 07:27] LABS: #Basophils 0.1 thou/uL (0.0-0.2); #Eosinphils 0.2 thou/uL (0.0-0.7); #Monocytes 0.6 thou/uL (0.11-0.59); #Neutrophils 1.6 thou/uL (1.40-6.50); %Basophils 3.8 % (0.0-1.0); %Eosinophils 6.6 % (0.0-10.0); %Lymphocytes 17.4 % (21.0-51.0); %Monocytes 19.6 % (0.0-10.0); Hematocrit 28.5 % (36.0-47.0); Hemoglobin 9.2 g/dL (12.0-16.0); Mean Corpuscular HGB CONC 32.3 g/dL (32.0-36.0); Mean Corpuscular Hemoglobin 31.7 pg (27.0-31.0); Mean Corpuscular Volume 98.3 fl (78.0-98.0); Mean Platelet Volume 10.9 fL (7.4-10.4); Platelet Count 279 10x3/uL (130-400); RBC Distribution Width 16.8 % (11.5-14.5); White Blood Cell (WBC) Count 3.2 10x3/uL (4.8-10.8)
[2023-01-23 07:54] LABS: Anion Gap 11 mmol/L (10-20); BUN (Urea Nitrogen) 6 mg/dL (9.8-20.1); CRP (Inflammatory) 3.92 mg/dL (= or < 0.5); Calc. Creatinine Clearance 71 mL/min (70-130); Calcium 7.5 mg/dL (7.8-10.44); Carbon Dioxide 23 mmol/L (23-31); Chloride 105 mmol/L (98-107); Estimated GFR 100; Glucose 80 mg/dL (83-110); Potassium 3.6 mmol/L (3.5-5.1); Sodium 135 mmol/L (136-145)
[2023-01-23 08:04] VITALS: TEMP 98
[2023-01-23] MEDS: Gabapentin 300 MG CAP PO SCH (08:44)
[2023-01-23] MEDS: Doxycycline 100 MG CAP PO SCH (08:44)
[2023-01-23] MEDS: Polyethylene Glycol 3350 17 GM Packet PO SCH (08:44)
[2023-01-23] MEDS: Famotidine 20 MG TAB PO SCH (08:44)
[2023-01-23] MEDS: Ferrous Sulfate 325 MG TAB PO SCH (08:44)
[2023-01-23] MEDS: cefTRIAXone\\ROCEPHIN 1 GM in Sodium Chloride 0.9% 100 ML IVPB SCH (08:44)
[2023-01-23] MEDS: valACYclovir 500 MG TAB PO SCH (08:44)
[2023-01-23 12:23] VITALS: BP 111/70
== END 2023-01-23 15:45 | disposition home or self-care (01) | DRG 194 ==
LOC: ERS 20:13 → T4-B 23:59 → UNDOADMOB 01-21 → T4-B 01-21 → OBSVTOIN 01-22 14:34
PROVIDERS: ADMIT Student in an Organized Health Care Education/Training Program; ATTEND Family Medicine
DX: J18.9 Pneumonia, unspecified organism (principal); C90.00 Multiple myeloma not having achieved remission; E87.1 Hypo-osmolality and hyponatremia; D63.8 Anemia in other chronic diseases classified elsewhere; R53.81 Other malaise; R53.1 Weakness; E87.6 Hypokalemia; Z98.890 Other specified postprocedural states; Z79.899 Other long term (current) drug therapy; Z11.52 Encounter for screening for COVID-19
CPT/HCPCS: 36415; 71045; 71275; 80048; 80053; 82607; 83735; 85025; 86140; 96365; 96367; 96372; 96376; G0378; J0456; J0696; J1650; J3490; Q9967